=== PATIENT | male | born 1975 ===

== ENCOUNTER 2021-10-06 05:55 | Day surgery (SDC) | payer OTHER ==
[~2021-10-06] VITALS: Ht 188 cm; Wt 113.4 kg
[~2021-10-06 05:55] MED LIST: ACTOS15 MG PO; ADULT LOW DOSE81 M1 PO; ATORVAST PO; CILOSTAZOL100 MG PO; GLUMETZA1000 MG PO; RAMIP PO; SYNTH PO
[2021-10-06] MEDS ORDERED: ULTRACET PO (09:34)
== END 2021-10-06 10:25 | disposition home or self-care (01) ==
LOC: CIR.AMB 05:55
PROVIDERS: ATTEND Surgery
DX: D17.22 Benign lipomatous neoplasm of skin and subcutaneous tissue of left arm (principal); Z20.822 Contact with and (suspected) exposure to COVID-19; I10 Essential (primary) hypertension; Z99.89 Dependence on other enabling machines and devices; G47.33 Obstructive sleep apnea (adult) (pediatric)